=== PATIENT | male | born 1940 | race Caucasian/White ===

== ENCOUNTER → 2023-11-03 | Outpatient (CLI) | payer MEDICARE | END | disposition home or self-care (01) | LOC: RAH 14:50 | PROVIDERS: ATTEND Internal Medicine | DX: I70.0 Atherosclerosis of aorta (principal); M47.815 Spondylosis without myelopathy or radiculopathy, thoracolumbar region; R06.02 Shortness of breath; R05.9 Cough, unspecified; Z95.0 Presence of cardiac pacemaker | CPT/HCPCS: 71046 ==

== ENCOUNTER → 2023-11-06 | Outpatient (CLI) | payer MEDICARE | END | disposition home or self-care (01) | LOC: RAH 09:08 | PROVIDERS: ATTEND Internal Medicine | DX: K40.20 Bilateral inguinal hernia, without obstruction or gangrene, not specified as recurrent (principal); K57.30 Diverticulosis of large intestine without perforation or abscess without bleeding; K44.9 Diaphragmatic hernia without obstruction or gangrene; N28.1 Cyst of kidney, acquired; M47.815 Spondylosis without myelopathy or radiculopathy, thoracolumbar region; R06.02 Shortness of breath | CPT/HCPCS: 74176 ==

== ENCOUNTER → 2024-02-26 | Outpatient (CLI) | payer MEDICARE ==
[~2024-02-26] MED LIST: ALPR1TAB7 PO; AMIO200T68 PO; ATOR40TA71 PO; BUPR-49 PO; EPLE50TA PO; ESOM40CA66 PO; HYDR25TA PO; LEVO137T2 PO; RIVA20TA PO; TAMS-1 PO
[2024-02-26 12:15] LABS: BASOPHILS # (AUTO) 0.04 K/uL (0.00-0.20); BASOPHILS % (AUTO) 0.6 % (0.0-5.0); EOSINOPHILS # (AUTO) 0.08 K/uL (0.00-0.70); EOSINOPHILS % (AUTO) 1.1 % (0.0-8.0); HEMATOCRIT 41.6 % (42-54); IMMATURE GRANULOCYTE ABSOLUTE 0.02 K/uL (0-1); LYMPHOCYTES # (AUTO) 1.3 K/uL (1.0-4.8); LYMPHOCYTES % (AUTO) 18.4 % (21.0-51.0); MEAN CORPUSCULAR HEMOGLOBIN 29.7 pg (27.0-33.0); MEAN CORPUSCULAR HGB CONC 30.8 g/dL (32.0-36.0); MEAN CORPUSCULAR VOLUME 96.5 fL (79-99); MONOCYTES # (AUTO) 0.7 K/uL (0.1-1.0); MONOCYTES % (AUTO) 10.2 % (3.0-13.0); NEUTROPHILS # (AUTO) 4.9 K/uL (1.8-7.7); NEUTROPHILS % (AUTO) 69.4 % (40.0-77.0); PLATELET COUNT (AUTO) 182 K/uL (130-400); RED BLOOD CELL COUNT(AUTO) 4.31 MIL/uL (4.50-6.20); RED CELL DISTRIBUTION WIDTH 13.3 % (11.0-15.5); WHITE BLOOD COUNT (AUTO) 7.1 K/uL (4.8-10.8)
[2024-02-26 12:31] LABS: ALBUMIN 3.6 g/dL (3.5-5.0); BILIRUBIN,TOTAL 0.7 mg/dL (0.2-1.0); CREATININE 1.1 mg/dL (0.5-1.3); POTASSIUM 3.4 mmol/L (3.5-5.1); TOTAL PROTEIN, SERUM 7.1 g/dL (6.0-8.3)
== END | disposition home or self-care (01) ==
LOC: LAB 09:22
PROVIDERS: ATTEND Internal Medicine Cardiovascular Disease
DX: I10 Essential (primary) hypertension (principal); E78.5 Hyperlipidemia, unspecified
CPT/HCPCS: 36415; 80053; 85025

== ENCOUNTER → 2024-04-07 | Outpatient (CLI) | payer MEDICARE ==
--- NOTE | 2024-04-08 12:17 | HMCIMG ---
CHEST 2VWS REASON: PNEUMONIA COMPARISON: 02/16/2024 FINDINGS: Two views of the chest were obtained. Lungs are clear. Heart size is normal. There is no pulmonary vascular congestion. Mediastinum and bony thorax appear unremarkable. 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 IMPRESSION: 1. No acute finding, no change.
== END | disposition home or self-care (01) ==
LOC: OIH 12:59
PROVIDERS: ATTEND Internal Medicine
DX: J18.9 Pneumonia, unspecified organism (principal)
CPT/HCPCS: 71046

== ENCOUNTER 2024-08-29 06:11 | Observation (INO) | payer MEDICARE ==
[2024-08-25 11:26] VITALS: BP 117/66; PULSE 72; RESP 18; TEMP 97.5
--- NOTE | 2024-08-25 11:40 | NUR ---
preop INCENTIVE SPIROMETRY DONE BY KIRAN AGUIRRE
[2024-08-25 11:45] LABS: CREATININE 1.1 mg/dL (0.5-1.3); POTASSIUM 3.6 mmol/L (3.5-5.1)
[2024-08-25 11:51] LABS: INR 1.23 (0.85-1.15); PROTHROMBIN TIME 12.8 SEC (9.6-11.6)
[2024-08-25 11:52] LABS: PARTIAL THROMBOPLASTIN TIME 34.2 SEC (26.3-35.5)
[2024-08-29] VITALS (28 sets, daily range): BP systolic 118–149; BP diastolic 48–83; PULSE 60–65; RESP 14–19; TEMP 96–97.8; O2SAT 94
[~2024-08-29] VITALS: Ht 185.4 cm; Wt 99.8 kg
[~2024-08-29 06:11] MED LIST changes: -AMIO200T68 PO; +AMIO200T73 PO; +TAFA20CA PO; -TAMS-1 PO; +TAMS-55 PO
[2024-08-29] MEDS: ceFAZolin SODIUM 2 GM VIAL ONE (07:22)
[2024-08-29] MEDS: LACTATED RINGERS 1000ML 1,000 ML IV ONE (07:23)
[2024-08-29] MEDS ORDERED: ROPivacaine 0.5% 5MG/ML 30ML ONE (07:39)
[2024-08-29] MEDS ORDERED: LIDOCAINE PF 100MG/5ML (2%) SYRINGE 5ML ONE (07:43)
[2024-08-29] MEDS ORDERED: FENTanyl CITRate PF 50 MCG/1 ML 2ML VIAL ONE (07:44)
[2024-08-29] MEDS ORDERED: proPOFol 10 MG/ML 20ML VIAL IV ONE (07:44)
[2024-08-29] MEDS ORDERED: rocuRONium bROMide 10MG/1ML 5ML VL ONE (07:44)
[2024-08-29] MEDS ORDERED: ketaMINE 50MG/ML SYRINGE 50 MG/ML DISP.SYRIN ONE (08:54)
--- NOTE | 2024-08-29 09:13 | DS ---
Discharge Summary Hospital Course Summary: The patient was admitted to the hospital postoperatively on 08/29/2024 after undergoing right total knee arthroplasty. They did well with routine postoperative pain control. They worked well with physical therapy. They developed some acute blood loss anemia but remained asymptomatic. The hospital course was otherwise uncomplicated. They were subsequently able to be discharged on postoperative day [] once discharge arrangements were made with home health physical therapy. Rn Unit Manager(s): None Procedure(s): Right total knee arthroplasty, 08/29/2024 Assessment/Plan: ASSESSMENT: Status post right total knee arthroplasty Acute blood loss anemia PLAN: See discharge instructions Discharge Instructions: Begin working with home health physical therapy. Dressing may be removed 08/31/2024 and left open to air. Showers ok allowing soap and water to run over the wound. Pat dry. Do not submerge wound in tub/pool. Do not apply ointments. Do not apply Betadine. Do not apply peroxide. Ice packs to decrease pain/swelling. Prescriptions have been sent to the pharmacy: *[place] 5/325mg 1-2 tab every 6 hours as needed for severe pain. (please call for refills) Cyclobenzaprine 5mg 1 tab every 8 hours as needed for muscle spasm pain. Gabapentin 100mg 1 tab every 8 hours (may discontinue if drowsy). Colace 100mg 1 tab orally twice a day as needed for constipation. Resume your home dose of Xarelto to prevent blood clots. Follow-up at [facility] on ThursdaySeptember 20 at 1:45 p.m. Home Medications: Reported Medications Tafamidis Meglumine (Vyndaqel) 20 Mg Capsule, 80 MG PO AM, CAP 08/25/24 Tamsulosin HCl (Flomax) 0.4 Mg Cap.er.24h, 1 CAP PO DAILY for 30 Days, #30 CAP 0 Refills 02/15/24 Amiodarone HCl (Amiodarone HCl) 200 Mg Tablet, 1 TAB PO DAILY 02/14/24 Esomeprazole Magnesium (Esomeprazole Magnesium) 40 Mg Capsule.dr, 1 CAP PO BID 02/14/24 Atorvastatin Calcium (Atorvastatin Calcium) 40 Mg Tablet, 1 TAB PO DAILY 02/14/24 Hydrochlorothiazide (Hydrochlorothiazide) 25 Mg Tablet, 1 TAB PO DAILY 02/14/24 Eplerenone (Eplerenone) 50 Mg Tablet, 1 TAB PO DAILY 02/14/24 Rivaroxaban (Xarelto) 20 Mg Tablet, 1 TAB PO DAILY 02/14/24 Bupropion HCl (Bupropion Xl) 150 Mg Tab.er.24h, 1 TAB PO BID 02/14/24 Levothyroxine Sodium (Levothyroxine Sodium) 137 Mcg Tablet, 1 TAB PO HS 02/14/24 Alprazolam (Alprazolam) 1 Mg Tablet, 1 TAB PO DAILYDINNER PRN for INSOMNIA/SLEEP 02/14/24 EDDIE NUR MD Aug 29, 2024 09:13
[2024-08-29] MEDS ORDERED: phenylEPHRINE HCL 10 MG/ML 1ML VIAL IV ONE (09:20)
[2024-08-29] MEDS ORDERED: dexaMETHasone SOD PHOSPHATE 10MG/ML 1ML VIAL ONE (09:24)
[2024-08-29] MEDS ORDERED: ondanSETRON 4MG INJ ONE (09:24)
[2024-08-29] MEDS: TRANEXAMIC ACID 1000MG/10ML ONE (09:30)
[2024-08-29] MEDS ORDERED: CALCIUM CARB 500MG PO PRN (09:30)
[2024-08-29] MEDS ORDERED: PoTASSium chloRIDE 20MEQ/100ML 100 ML IV PRN (09:30)
[2024-08-29] MEDS ORDERED: PoTASSium chloRIDE 20MEQ ER 20 MEQ ERTAB PO PRN (09:30)
[2024-08-29] MEDS ORDERED: traMADol HCL 50 MG TABLET PO PRN (09:30)
[2024-08-29] MEDS ORDERED: HYDROcodone/APAP 5/325 1 TAB TABLET PO PRN ×2 (09:30)
[2024-08-29] MEDS ORDERED: FERROUS FUMARATE 324 MG TABLET PO PRN (09:30)
[2024-08-29] MEDS ORDERED: CYCLOBENZAPRINE HCL 10 MG TABLET PO PRN (09:30)
[2024-08-29] MEDS ORDERED: ondanSETRON 4MG INJ IVP PRN (09:30)
[2024-08-29] MEDS ORDERED: PoTASSium chl 10% ELIXIR 20MEQ 20 MEQ/15 ML UDCUP PO PRN (09:30)
[2024-08-29] MEDS ORDERED: DiphenhydrAMINE HCL 50 MG/ML VIAL IVP PRN (09:30)
[2024-08-29] MEDS: ROPivacaine 0.5% 5MG/ML 30ML ONE (10:00)
[2024-08-29] MEDS: ketOROlac 30MG VIAL (30MG/ML) ONE (10:00)
[2024-08-29] MEDS ORDERED: NEOSTIGMINE METHYLSULFATE 1MG/ML IV ONE (10:49)
[2024-08-29] MEDS ORDERED: GLYCOPYRROLATE 0.2 MG/ML 5 ML VIAL ONE (10:49)
--- NOTE | 2024-08-29 10:50 | OP ---
Operative Note: DATE OF PROCEDURE: 08/29/24 PREOPERATIVE DIAGNOSIS: Right knee osteoarthritis. POSTOPERATIVE DIAGNOSIS: Right knee osteoarthritis. PROCEDURE PERFORMED: Right knee total knee arthroplasty. SURGEON: Felicitas Mcneil MD PROJECT BUYER: Yaritza Muñiz ANESTHESIA: General with adductor canal block. ANESTHESIA: VIC [place]. ESTIMATED BLOOD LOSS: 50cc. COMPLICATIONS: None. DRAINS: None. SPECIMENS REMOVED: resected bone. Not sent to pathology. IMPLANTS: [employer] II BCS size 8 Oxinium femur, size 7 tibial base plate, 35 x 7.5 mm patella, 10 mm polyethylene STATEMENT OF MEDICAL NECESSITY: The patient is a 83-year-old male who suffers from right knee osteoarthritis failing conservative management. After discussion of the risks, benefits, and alternatives with the patient, they voluntarily agreed to undergo the aforementioned procedure. DESCRIPTION OF PROCEDURE: Patient was properly identified in the preoperative holding area. Surgical site marking was verified and surgery consent reviewed. The patient was then taken to the operating room and placed in supine position on the OR table. After induction of general anesthesia, preoperative antibiotics were given, all bony prominences were well-padded, and a well padded tourniquet was applied but not inflated at this time. The right lower extremity was then prepped and draped in usual sterile fashion. Surgical time out was done verifying correct surgery, side, site, and location to be performed. We then began the procedure by exsanguinating the limb using an Esmarch and inflating the tourniquet to 300 mmHg. At this point, we made an anterior midline incision using a 10 blade, coming down sharply the level of the fascia. Skin flaps were elevated medially and laterally. We then obtained a clean 10 blade and performed a standard medial parapatellar arthrotomy. We excised the infrapatellar fat pad. We performed our soft tissue releases off of the tibia. We transected the ACL and removed the anterior portion of the medial & lateral meniscus. We then brought the knee into hyperflexion with the patella everted. We used our entry reamer to enter the femoral canal. We then placed our intramedullary cutting guide for our distal femoral cutting block. We then performed our distal femoral osteotomy ensuring appropriate rotation and removed the bony wafer. We then removed these pins and block and then used jig 2 to size the distal femur with the after mentioned size found. We then placed our 5-in-1 cutting block in 3 degrees of external rotation and took our 5 cuts ensuring to protect the patellar tendon and the collateral ligaments. We then removed the cutting block and our bony fragments using a curved osteotome. We then placed our PCL retractor subluxating the tibia anteriorly. Using an extra medullary tibial cutting guide, we hung the block for our proximal tibial cut taking 2 mm off the more diseased portion. Prior to pinning this block in place, we ensured appropriate varus/valgus alignment and posterior slope similar to the buckland slope of the patient's knee. We then performed our proximal tibial osteotomy and removed the bony wafer using Bovie electrocautery to release any remaining soft tissue attachments. We then used our tibial sizing paddle and checked once more for varus & valgus alignment and found this to be appropriate. At this point, we pinned our tibial paddle in place. We then removed the PCL retractor and subluxated the tibia posteriorly while we placed our femoral trial component. We then finished preparing the notch with the reamer and box chisel. The notch portion of the trial femoral component was then placed. A posterior stabilized polyethylene, size 9 trial was placed. The knee was then taken through range of motion and found to have stable full range of motion. We then placed a bump under the ankle and everted the patella to perform our freehand cut of the undersurface the patella. We then sized our patella and reamed to the lug holes for this. We placed our trial patellar component and begin to take the knee through range of motion. The patella had extreme lateral tracking, and we performed a lateral release. However the patella continued to have significant lateral tracking. We adjusted our tibial component rotation and placed a towel clip to approximate the soft tissues and had slightly better patellar tracking. We therefore elected to go with the 7.5 mm thickness patellar component. At this point we began removing our trial components and punched the tibial keel prior to removing our tibial trial component. Final components were opened and cement was mixed on the back table while we injected local cocktail in the posterior capsule. We then thoroughly irrigated out the bone and dried the bony surfaces. We cemented our tibial component in place ensuring to remove excess cement and placed our trial polyethylene. We then cemented our femoral component in place once again taking time to ensure excess cement was removed leg was brought into full extension to help squeeze the excess cement from around the femoral component. We then brought the knee back in a flexion to remove this portion of the cement at this point we placed the ankle in a bump thoroughly irrigated off the patellar component and cemented our patellar component in standard fashion again removing excess cement. While we waited for the cement to cure, we thoroughly irrigated out the wound with normal saline. Once our cement had cured, we took the knee through a range of motion and found full and stable range of motion. We then elected to use the size 10 polyethylene and removed our trial polyethylene. We impacted our final polyethylene component in place in standard fashion and took the knee through a range of motion check once more. This was satisfactory so we began to repair the arthrotomy using #1 Vicryl in interrupted [id number] fashion. Subcutaneous tissue was repaired using 2-0 Vicryl. Running subcuticular 3-0 Monocryl stitch with Dermabond placed over this for the skin. We then applied a foam barrier dressing and a pressure dressing consisting of 4 x 4's fluffs and an Anthony wrap. The tourniquet was then deflated. Patient was awakened from anesthesia, and they were taken to the recovery room in stable condition. FELICITAS MCNEIL MD Aug 29, 2024 10:50
[2024-08-29] MEDS: ketOROlac 15MG/ML VIAL (15MG/ML) IV SCH (11:38)
[2024-08-29] MEDS: FENTanyl CITRate PF 50 MCG/1 ML 2ML VIAL ONE (11:51)
--- NOTE | 2024-08-29 12:45 | NUR ---
PATIENT ARRIVED ON UNIT VIA STRETCHER. NO SIGNS OR SYMPTOMS OF DISTRESS NOTED. PT DENIES PAIN. WILL REVIEW AND FOLLOW ORDERS.
[2024-08-29] MEDS: acetaMINOPHEN 100 ML ONE (13:24)
[2024-08-29] MEDS: SUGAMMADEX SODIUM 200 MG/2 ML VIAL IV ONE (13:24)
[2024-08-29] MEDS: ketOROlac 15MG/ML VIAL (15MG/ML) ONE (13:24)
[2024-08-29] MEDS: GABAPENTIN 300 MG CAPSULE ONE (13:24)
[2024-08-29] MEDS: FAMOTIDINE 20MG VIAL IV ONE (13:24)
--- NOTE | 2024-08-29 13:33 | HMCIMG ---
KNEE/PATELLA 1-2VWS RT HISTORY: Right total knee arthroplasty COMPARISON: None TECHNIQUE: 2 images of the right knee were obtained. FINDINGS: Total knee arthroplasty changes are seen. There are soft tissue swelling and soft tissue emphysema. There is no acute displaced fracture or dislocation. Degenerative changes are seen. IMPRESSION: 1. Findings as described above.
[2024-08-29] MEDS: GABApentin 100 MG CAPSULE PO SCH (14:01)
[2024-08-29] MEDS: 0.9%NACL 1000ML 1,000 ML IV SCH (14:02)
--- NOTE | 2024-08-29 14:59 | NUR ---
PT provided education on purpose of SCDs, pain management, use of call light, plan of care, and DC planning. PT placed ice and SCDS, brought tall chair and chair alarm for am. Pt left with SCDS on and fall alarm on , call damon in place, ice in place. All questions answered. Pt BP low, pt symptomatic and reports " seeing double. Back to bed. Nurse aware. Will ambulate in am.
[2024-08-29] MEDS: hydroCHLOROthiazide 25 MG TABLET PO SCH (15:06)
--- NOTE | 2024-08-29 15:30 | NUR ---
ORTHO COORDINATOR: TEACHING REGARDING DVT AND PNEUMONIA PREVENTION, PAIN EXPECTATIONS AND PAIN MANAGEMENT. PATIENT IN BED. B SCD SLEEVES IN PLACE AND FUNCTIONING. INCENTIVE SPIROMETER ON BEDSIDE TRAY. PATIENT RETURN DEMONSTRATED PROPER USE OF INCENTIVE SPIROMETER AND FOOT FLEXION/EXTENSION EXERCISES. PATIENT VERBALIZED FREQUENCY OF PERFORMING BREATHING EXERCISES. PAIN EXPECTATIONS REALISTIC. PATIENT REPORTS LEFT KNEE REPLACEMENT IN 2018. REVIEWED NUMERIC PAIN SCALE. ENCOURAGED PATIENT TO PERFORM SELF PAIN ASSESSMENT EVERY FOUR HOURS. INSTRUCTED TO ASSIGN A NUMERIC PAIN VALUE AND TYPE, REPORT TO PRIMARY NURSE SO APPROPRIATE PAIN MEDICATION CAN BE ADMINISTERED. PATENT VERBALIZED UNDERSTANDING. EXPECTATIONS TO SHOWER TOMORROW COMMUNICATED. PATIENT INTENDS TO DISCHARGE HOME WITH HOME HEALTH PHYSICAL THERAPY. PATIENT WILL NEED WALKER AND 3-1 COMMODE. REVIEWED PROCESS FOR HOME HEALTH VISITS. PATIENT VERBALIZED UNDERSTANDING TO ALL TEACHING. NO ADDITIONAL QUESTIONS/CONCERNS AT THIS TIME.
[2024-08-29] MEDS: ceFAZolin SODIUM 2 GM VIAL IVP SCH (17:44)
[2024-08-29] MEDS: buPROPion HCL 150 MG TABLET.SA PO SCH (19:44)
[2024-08-29] MEDS: doCUSate SODIUM 100 MG CAP PO SCH (19:44)
[2024-08-29] MEDS ORDERED: LEVOTHYROXINE SODIUM PO SCH (21:00)
[2024-08-30 00:02] VITALS: BP 144/66; PULSE 51; RESP 18; TEMP 97.6
[2024-08-30 03:50] LABS: MEAN CORPUSCULAR HEMOGLOBIN 32.7 pg (27.0-33.0); MEAN CORPUSCULAR HGB CONC 33.7 g/dL (32.0-36.0); MEAN CORPUSCULAR VOLUME 96.9 fL (79-99); RED BLOOD CELL COUNT(AUTO) 3.92 MIL/uL (4.50-6.20); WHITE BLOOD COUNT (AUTO) 12.7 K/uL (4.8-10.8)
[2024-08-30 04:05] LABS: CREATININE 1.1 mg/dL (0.5-1.3)
[2024-08-30 04:15] VITALS: BP 120/65; PULSE 54; RESP 18; TEMP 97.9
[2024-08-30] MEDS: levoTHYROxine 25 MCG TABLET PO SCH (05:49)
[2024-08-30] MEDS: levoTHYROxine 112 MCG TABLET PO SCH (05:49)
--- NOTE | 2024-08-30 07:59 | PN ---
Ortho postop day one. This morning the patient is awake alert and oriented he is out of bed seated in a chair reporting adequate pain control. He is alternating extension and flexion using a footstool while seated. The Anthony bandage has been removed. The dressing to the anterior joint is intact. Ice is present to operative site. Vital signs have been stable. Afebrile. Laboratory results reviewed. Noted to have a drop in hemoglobin hematocrit as expected after TKA. Patient is asymptomatic and we will address per protocol as necessary. Voiding on his own and already passing gas. Operative findings discussed with the patient. Reinforced incentive spirometry. Did not tolerate physical therapy yesterday reporting dizziness this morning he states he is feeling better. Therapy pending this morning. Anticipated discharge goal is home health/PT. Assessment: Status post right TKA. Asymptomatic acute postoperative blood loss anemia. Plan: Continue Dr. Mcneil's TKA protocol and discharge planning. Asymptomatic acute postoperative blood loss anemia addressed with protocol Vitals/Labs Vital Signs Date Time Temp Pulse Resp B/P (MAP) Pulse Ox O2 Delivery O2 Flow Rate FiO2 08/30/24 04:15 97.9 54 18 120/65 96 Room Air 21 08/29/24 20:00 0 Laboratory Tests 08/30/24 03:23 Medications Current Medications Cefazolin Sodium 2 gm STK-MED ONCE .ROUTE Last administered on 08/29/24at 09:32; Start 08/29/24 at 06:17; Stop 08/29/24 at 06:17; Status DC Lactated Ringer's 1,000 ml @ As Directed STK-MED ONCE IV Last administered on 08/29/24at 07:23; Start 08/29/24 at 06:17; Stop 08/29/24 at 06:18; Status DC Gabapentin 300 mg STK-MED ONCE .ROUTE; Start 08/29/24 at 07:01; Stop 08/29/24 at 07:01; Status DC Acetaminophen 100 ml @ As Directed STK-MED ONCE .ROUTE; Start 08/29/24 at 07:01; Stop 08/29/24 at 07:01; Status DC Famotidine 20 mg STK-MED ONCE IV; Start 08/29/24 at 07:01; Stop 08/29/24 at 07:01; Status DC Ropivacaine 150 mg STK-MED ONCE .ROUTE; Start 08/29/24 at 07:39; Stop 08/29/24 at 07:39; Status DC Lidocaine HCl 100 mg STK-MED ONCE .ROUTE; Start 08/29/24 at 07:43; Stop 08/29/24 at 07:44; Status DC Propofol 200 mg STK-MED ONCE IV; Start 08/29/24 at 07:44; Stop 08/29/24 at 07:44; Status DC Rocuronium [place] 50 mg STK-MED ONCE .ROUTE; Start 08/29/24 at 07:44; Stop 08/29/24 at 07:44; Status DC Fentanyl Citrate 100 mcg STK-MED ONCE .ROUTE; Start 08/29/24 at 07:44; Stop 08/29/24 at 07:45; Status DC Ketorolac Tromethamine 30 mg STK-MED ONCE .ROUTE Last administered on 08/29/24at 10:00; Start 08/29/24 at 08:30; Stop 08/29/24 at 08:30; Status DC Ropivacaine 150 mg STK-MED ONCE .ROUTE Last administered on 08/29/24at 10:00; Start 08/29/24 at 08:30; Stop 08/29/24 at 08:30; Status DC Ketamine HCl 50 mg STK-MED ONCE .ROUTE; Start 08/29/24 at 08:54; Stop 08/29/24 at 08:54; Status DC Sodium Chloride 1,000 ml @ 100 mls/hr Q10H IV Last administered on 08/30/24at 03:55; Start 08/29/24 at 09:30; Stop 08/30/24 at 09:29 Polyethylene Glycol 17 gm DAILY PO; Start 08/30/24 at 09:00; Stop 09/29/24 at 08:59 Bisacodyl 10 mg DAILY PRN RC; Start 09/01/24 at 09:30; Stop 10/01/24 at 09:29 Ketorolac Tromethamine 15 mg Q6H PRN IV; Start 08/30/24 at 09:30; Stop 09/04/24 at 09:29 Ferrous Fumarate 324 mg DAILY PRN PO; Start 08/29/24 at 09:30; Stop 09/28/24 at 09:29 Ondansetron HCl 4 mg Q6H PRN IVP; Start 08/29/24 at 09:30; Stop 09/28/24 at 09:29 Calcium Carbonate 500 mg Q12H PRN PO; Start 08/29/24 at 09:30; Stop 09/28/24 at 09:29 Diphenhydramine HCl 25 mg Q6H PRN IVP; Start 08/29/24 at 09:30; Stop 08/29/24 at 09:14; Status DC Cefazolin Sodium 2 gm Q8H IVP Last administered on 08/30/24at 00:57; Start 08/29/24 at 18:00; Stop 08/30/24 at 02:01; Status DC Cyclobenzaprine HCl 5 mg Q8H PRN PO; Start 08/29/24 at 09:30; Stop 09/28/24 at 09:29 Gabapentin 100 mg TID PO Last administered on 08/29/24at 19:44; Start 08/29/24 at 14:00; Stop 09/28/24 at 13:59 Aspirin 325 mg DAILY PO; Start 08/30/24 at 09:00; Stop 09/29/24 at 08:59 Ketorolac Tromethamine 15 mg Q8H IV Last administered on 08/30/24at 00:57; Start 08/29/24 at 09:30; Stop 08/30/24 at 01:31; Status DC Docusate Sodium 100 mg BID PO Last administered on 08/29/24at 19:44; Start 08/29/24 at 21:00; Stop 09/28/24 at 20:59 Potassium Chloride 100 ml @ 100 mls/hr AD PRN IV; Start 08/29/24 at 09:30; Stop 09/28/24 at 09:29 Potassium Chloride 20 meq AD PRN PO; Start 08/29/24 at 09:30; Stop 09/28/24 at 09:29 Potassium Chloride 20 meq AD PRN PO; Start 08/29/24 at 09:30; Stop 09/28/24 at 09:29 Tramadol HCl 50 mg Q6H PRN PO; Start 08/29/24 at 09:30; Stop 09/03/24 at 09:29 Acetaminophen/ Hydrocodone Bitart Q4H PRN PO; Start 08/29/24 at 09:30; Stop 08/29/24 at 09:23; Status DC Amiodarone HCl 200 mg DAILY PO; Start 08/30/24 at 09:00; Stop 09/29/24 at 08:59 Atorvastatin Calcium 40 mg DAILY PO; Start 08/30/24 at 09:00; Stop 09/29/24 at 08:59 Hydrochlorothiazide 25 mg DAILY PO; Start 08/30/24 at 09:00; Stop 08/29/24 at 14:14; Status DC Tamsulosin HCl 0.4 mg DAILY PO; Start 08/30/24 at 09:00; Stop 09/29/24 at 08:59 Bupropion HCl 150 mg BID PO Last administered on 08/29/24at 19:44; Start 08/29/24 at 21:00; Stop 09/28/24 at 20:59 Home Med (Eplerenone 1 TAB) DAILY PO; Start 08/30/24 at 09:00; Stop 09/29/24 at 08:59 Pantoprazole Sodium 40 mg DAILY PO; Start 08/30/24 at 09:00; Stop 09/29/24 at 08:59 Miscellaneous Medication 1 tab HS PO; Start 08/29/24 at 21:00; Stop 08/29/24 at 09:24; Status DC Home Med (Tafamidis Meglumine (Vyndaq... AM PO; Start 08/30/24 at 09:00; Stop 09/29/24 at 08:59 Phenylephrine HCl 10 mg STK-MED ONCE IV; Start 08/29/24 at 09:20; Stop 08/29/24 at 09:20; Status DC Tranexamic Acid 1,000 mg STK-MED ONCE .ROUTE Last administered on 08/29/24at 09:30; Start 08/29/24 at 09:23; Stop 08/29/24 at 09:24; Status DC Ondansetron HCl 4 mg STK-MED ONCE .ROUTE; Start 08/29/24 at 09:24; Stop 08/29/24 at 09:24; Status DC Dexamethasone Sodium Phosphate 10 mg STK-MED ONCE .ROUTE; Start 08/29/24 at 09:24; Stop 08/29/24 at 09:24; Status DC Levothyroxine Sodium 112 mcg SYN PO Last administered on 08/30/24at 05:49; Start 08/30/24 at 06:30; Stop 09/29/24 at 06:29 Levothyroxine Sodium 25 mcg SYN PO Last administered on 08/30/24at 05:49; Start 08/30/24 at 06:30; Stop 09/29/24 at 06:29 Acetaminophen/ Hydrocodone Bitart 1 tab Q4H PRN PO; Start 08/29/24 at 09:30; Stop 09/03/24 at 09:29 Acetaminophen/ Hydrocodone Bitart 2 tab Q4H PRN PO; Start 08/29/24 at 09:30; Stop 09/03/24 at 09:29 Glycopyrrolate 1 mg STK-MED ONCE .ROUTE; Start 08/29/24 at 10:49; Stop 08/29/24 at 10:55; Status DC Neostigmine Methylsulfate 10 mg STK-MED ONCE IV; Start 08/29/24 at 10:49; Stop 08/29/24 at 10:55; Status DC Ketorolac Tromethamine 15 mg STK-MED ONCE .ROUTE; Start 08/29/24 at 11:37; Stop 08/29/24 at 11:37; Status DC Fentanyl Citrate 100 mcg STK-MED ONCE .ROUTE Last administered on 08/29/24at 11:51; Start 08/29/24 at 11:48; Stop 08/29/24 at 11:49; Status DC Hydrochlorothiazide 25 mg DAILY@1400 PO Last administered on 08/29/24at 15:06; Start 08/29/24 at 14:30; Stop 09/28/24 at 14:29 MARICARMEN DAVE NP Aug 30, 2024 07:59
[2024-08-30 08:00] VITALS: O2SAT 92
[2024-08-30 08:30] VITALS: BP 126/67; PULSE 66; RESP 19; TEMP 98
[2024-08-30] MEDS: polyETHYLene GLYCol 3350 17 GM POWD.PACK PO SCH (08:40)
[2024-08-30] MEDS: ASPIRIN 325MG EC TAB PO SCH (08:40)
[2024-08-30] MEDS: PANTOPrazole 40 MG TAB DR PO SCH (08:42)
[2024-08-30] MEDS: atorVAStatin 40 MG TABLET PO SCH (08:42)
[2024-08-30] MEDS: AMIOdarone 200 MG TABLET PO SCH (08:42)
[2024-08-30] MEDS: tamSULOsin HCL 0.4 MG CAP.ER.24H PO SCH (08:42)
--- NOTE | 2024-08-30 08:45 | NUR ---
MEDICATIONS HELD PATIENTS MORNING MEDS BECAUSE HE TOOK FROM HIS OWN HOME MED SUPPLY. EDUCATED THAT WE WILL PROVIDE ALL MEDICATIONS ORDERED AND TO NOT TAKE FROM HOME SUPPLY TO PREVENT DOUBLE DOSING. COMPARED HOME MEDS WITH MED LIST ORDERED AND PROVIDED MEDICATIONS NOT TAKEN BY PATIENT. PATIENT VOICED UNDERSTANDING WILL CONTINUE TO MONITOR.
[2024-08-30] MEDS ORDERED: hydroCHLOROthiazide 25 MG TABLET PO SCH (09:00)
--- NOTE | 2024-08-30 09:09 | NUR ---
EDUCATION PATIENT WAS EDUCATED BY NEVIN WITH PT TO NOT GET UP BY HIMSELF TO PREVENT ANY FALL OR COMPLICATION WITH SURGERY. AT BEDSIDE AND WITNESSED TO EDUCATION. PATIENT STATED "WELL I HAVE TO POOP!". EDUCATED PATIENT TO WAIT FOR ASSISTANCE WHEN NEEDING TO AMBULATE SO STAFF CAN GUIDE WITH AMBULATION AND PREVENT ANY FALLS. REINFORCED EDUCATION ON COMPLICATIONS IF FALL OCCURS. BOTH PATIENT AND VOICED UNDERSTANDING. WILL CONTINUE TO MONITOR.
[2024-08-30] MEDS ORDERED: ketOROlac 15MG/ML VIAL (15MG/ML) IV PRN (09:30)
[2024-08-30 11:00] VITALS: BP 134/60; PULSE 65; RESP 19; TEMP 98
--- NOTE | 2024-08-30 11:10 | NUR ---
[facility] CM MET WITH PT THIS MORNING, INITIAL ASSESSMENT DONE. PATIENT IS INDEPENDENT PRIOR TO ADMISSION, LIVES AT HOME WITH HIS . PATIENT DENIES ANY EQUIPMENT/SERVICES. FEELS SAFE TO GO BACK HOME, STILL DRIVE, [facility] TO [facility] TO ASSIST WITH TRANSPORTATION AND NEEDS NECESSARY. DISCUSSED MD RECOMMENDATIONS FOR HOME W/HH FOR PT AND DME PT WILL NEED STANDARD WALKER, PT AGREEABLE, CONSENT SIGNED [place] FOR [facility] HH AND [facility]. [facility] HOME W/HH & DME ONCE APPROVED. CM TO CONTINUE TO FOLLOW UP. Addendum: 08/30/24 at 1533 by HUGO BOATENG LVN CM Amended: Links added.
[2024-08-30] MEDS: HYDROcodone/APAP 5/325 1 TAB TABLET PO PRN (12:11)
[2024-08-30] MEDS ORDERED: CYCL-309 PO (14:39)
[2024-08-30] MEDS ORDERED: HYDR-4060 PO (14:39)
[2024-08-30] MEDS ORDERED: GABA100C PO (14:39)
[2024-08-30] MEDS ORDERED: DOCU-116 PO (14:39)
--- NOTE | 2024-08-30 15:44 | NUR ---
DISCHARGE DISCHARGE ORDER FOR PATIENT TO BE DISCHARGED HOME WITH [facility] OBTAINED. APPROVAL FROM [facility] CONFIRMED BY CM. DISCHARGE ORDERS AND DOCUMENTATION GIVEN TO PATIENT AT BEDSIDE. VOICED UNDERSTANDING. IV DISCONTINUED, CATHETER INTACT, NO S/S OF INFECTION NOTED. BANDS REMOVED. PATIENT PENDING TRANSPORTATION FROM .
--- NOTE | 2024-08-30 16:18 | NUR ---
GAVE REPORT TO [facility] JENI DAVIS FOR PT. VOICED UNDERSTANDING.
--- NOTE | 2024-08-30 16:40 | NUR ---
DISCHARGE PATIENT LEFT VIA WHEELCHAIR ACCOMPANIED BY , NO S/S OF DISTRESS NOTED
--- NOTE | 2024-08-30 22:28 | PN ---
PROGRESS NOTE PROGRESS NOTE DATE OF PROGRESS NOTE: 08/30/24 SUBJECTIVE: Patient has post-operative pain VITAL SIGNS Vital Signs Date Time Temp Pulse Resp B/P (MAP) Pulse Ox O2 Delivery O2 Flow Rate FiO2 08/30/24 11:00 98.1 65 19 134/60 96 Room Air 08/30/24 08:00 0 21 PHYSICAL EXAM: heent Normal Heart normal Lungs normal exam Abdomen normal exam LABORATORY: Laboratory Result(s) Test 08/30/24 03:23 White Blood Count 12.7 K/uL (4.8-10.8) Red Blood Count 3.92 MIL/uL (4.50-6.20) Hemoglobin 12.8 g/dL (14.0-18.0) Hematocrit 38.0 % (42-54) Mean Corpuscular Volume 96.9 fL (79-99) Mean Corpuscular Hemoglobin 32.7 pg (27.0-33.0) Mean Corpuscular Hemoglobin Concent 33.7 g/dL (32.0-36.0) Red Cell Distribution Width 13.0 % (11.0-15.5) Platelet Count 120 K/uL (130-400) Mean Platelet Volume 10.0 fL (7.5-10.5) Nucleated Red Blood Cells 0.0 % (0.0-0.19) Sodium Level 137 mmol/L (136-145) Potassium Level 4.0 mmol/L (3.5-5.1) Chloride Level 105 mmol/L (101-111) Carbon Dioxide Level 28 mmol/L (21-32) Blood Urea Nitrogen 18 mg/dL (7-18) Creatinine 1.1 mg/dL (0.5-1.3) Glomerular Filtration Rate Calc 67 mL/min (>90) Random Glucose 109 mg/dL (70-105) Total Calcium 9.2 mg/dL (8.5-10.1) PLAN: Stable Cardiomyopathy LENCHO OVERTON MD Aug 30, 2024 22:28
[2024-09-01] MEDS ORDERED: BisaCODYL 10 MG SUPP.RECT RC PRN (09:30)
== END 2024-08-30 17:00 | disposition home or self-care (01) ==
LOC: DAH 06:11 → DAHIP 06:12 → DAH 06:12 → 4AH 12:45
PROVIDERS: ADMIT Student in an Organized Health Care Education/Training Program; ATTEND Student in an Organized Health Care Education/Training Program
DX: M17.11 Unilateral primary osteoarthritis, right knee (principal); M25.561 Pain in right knee; I10 Essential (primary) hypertension; I25.10 Atherosclerotic heart disease of native coronary artery without angina pectoris; K21.9 Gastro-esophageal reflux disease without esophagitis; I48.91 Unspecified atrial fibrillation; K59.09 Other constipation; D62 Acute posthemorrhagic anemia; Z79.899 Other long term (current) drug therapy; Z98.890 Other specified postprocedural states
CPT/HCPCS: 27447; 96365; 97161; 97530 ×4; 96366; 96375; 97116 ×2; G0378 ×32; A4223 ×2; A4663; J7120 ×2; J3490 ×5; J3010 ×2; J1100; J2003; J2704; J2405; J1885 ×3; J2710; J2795 ×2; J2371; J0690 ×3; C1713 ×2; C1776 ×2; A4649 ×2; A4930; A6255; A4215; A4213; A4222; A4221; A4216; A4600; 36415; 73560; 80048; 84134; 85027; 85610; 85730; 86140; 87641

== ENCOUNTER → 2024-10-12 | Outpatient (CLI) | payer MEDICARE ==
[~2024-10-12] MED LIST changes: +CYCL-309 PO; +DOCU-116 PO; +GABA100C PO; +HYDR-4060 PO
--- NOTE | 2024-10-17 13:50 | HMCIMG ---
DIGITAL bilateral breast DIAGNOSTIC MAMMOGRAM Technique: The digital mammographic examination of both breasts in craniocaudal, mediolateral oblique views along with CAD was obtained. History: This is a 84 years year-old male with gynecomastia. Patient has no family history of breast cancer. Patient has no complaint Reference:Baseline mammogram. Breast composition: Breast composition B: There are scattered areas of fibroglandular density. Finding: The digital mammographic examination of both breasts in craniocaudal and mediolateral oblique view along with CAD demonstrates the right breast there is mostly involutional fatty changes in the left breast there is subareolar breast tissues. From this study a lesion cannot be excluded. I would recommend ultrasound for further evaluation. There is no evidence of any dendritic mass, cluster microcalcification or architectural distortion. The retromammary fat appears to be normal. There is a pacemaker also seen in the left axillary region. IMPRESSION: Left breast has minimal gynecomastia as compared to the right breast I would recommend bilateral breast sonogram for further evaluation.. FINAL ASSESSMENT: ACR: BI-RAD -0. Incomplete: need additional imaging evaluation. Management: Recall for additional imaging and/or comparison with prior examination(s). Likelihood of Cancer: N/A NOTE: IF A WORK-UP OF THIS PATIENT LEADS TO A BIOPSY, PLEASE FORWARD A COPY OF THE PATHOLOGY REPORT TO OUR OFFICE REQUIRED BY [employer] E[employer] DECEMBER 07, 1993. A NEGATIVE MAMMOGRAM SHOULD NOT PRECLUDE BIOPSY OF A CLINICALLY PALPABLE SUSPICIOUS MASS, 10% OF BREAST CANCERS ARE MAMMOGRAPHICALLY OCCULT. THIS MAMMOGRAPHY FACILITY IS FULLY ACCREDITED BY THE FOOD AND DRUG ADMINISTRATION (FDA). THANK YOU FOR THIS REFERRAL.
== END ==
LOC: RAH 14:29
PROVIDERS: ATTEND Internal Medicine
DX: N62 Hypertrophy of breast (principal)
CPT/HCPCS: 77066

== ENCOUNTER 2024-12-19 07:15 | Day surgery (SDC) | payer MEDICARE ==
[2024-12-15 10:14] LABS: IMMATURE GRANULOCYTE ABSOLUTE 0.02 K/uL (0-1); NUCLEATED RED BLOOD CELLS 0.0 % (0.0-0.19); PLATELET COUNT (AUTO) 152 K/uL (130-400); RED BLOOD CELL COUNT(AUTO) 4.70 MIL/uL (4.50-6.20); RED CELL DISTRIBUTION WIDTH 13.4 % (11.0-15.5); WHITE BLOOD COUNT (AUTO) 5.7 K/uL (4.8-10.8)
[2024-12-15 10:22] LABS: INR 1.29 (0.85-1.15)
[2024-12-15 10:28] LABS: CREATININE 1.2 mg/dL (0.5-1.3); GLOMERULAR FILTR. RATE CALC 60.0 mL/min (>90); GLUCOSE,RANDOM 95.0 mg/dL (70-105); SODIUM SERUM 144.0 mmol/L (136-145); UREA NITROGEN, BLOOD 20.0 mg/dL (7-18)
[2024-12-15 10:36] VITALS: BP 117/64; PULSE 80; RESP 18; TEMP 97.5
--- NOTE | 2024-12-15 11:06 | EKG ---
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
[~2024-12-19] VITALS: Ht 185.4 cm; Wt 96.5 kg
[2024-12-19] VITALS (9 sets, daily range): BP systolic 99–121; BP diastolic 50–84; PULSE 60–77; RESP 10–18; TEMP 97–97.3
[~2024-12-19 07:15] MED LIST changes: -CYCL-309 PO; -DOCU-116 PO; -GABA100C PO; -HYDR-4060 PO; +HYDR12.54 PO; -HYDR25TA PO
[2024-12-19] MEDS: 0.9%NACL 1000ML 1,000 ML IV SCH (08:15)
[2024-12-19] MEDS ORDERED: LIDOCAINE HCL 1% MDV 50ML VIAL ONE (08:51)
[2024-12-19] MEDS ORDERED: MIDAZOLAM HCL 1 MG/ML 2ML VIAL ONE ×4 (09:25→10:08)
--- NOTE | 2024-12-19 11:05 | NUR ---
DRESSING: PRESSURE DRESSING TO LEFT UPPER CHEST DRY/INTACT.
--- NOTE | 2024-12-19 11:25 | NUR ---
DRESSING: PRESSURE DRESSING TO LEFT UPPER CHEST REMAINS DRY/INTACT.
--- NOTE | 2024-12-19 11:40 | NUR ---
dressing: pressure dressing to left upper chest dry/intact
--- NOTE | 2024-12-19 11:50 | NUR ---
dressing: pressure dressing to left upper chest dry/intact
--- NOTE | 2024-12-19 12:05 | NUR ---
dressing: pressure dressing to left upper chest remains dry/intact.
--- NOTE | 2024-12-19 12:35 | NUR ---
dressing: pressure dressing to left upper chest dry/intact.
--- NOTE | 2024-12-19 13:05 | NUR ---
dressing: pressure dressing to left upper chest remains dry/intact
--- NOTE | 2024-12-19 13:58 | NUR ---
report: handoff communication given to megan terrell rn
--- NOTE | 2024-12-19 14:50 | NUR ---
VERBAL AND WRITTEN DISCHARGE INSTRUCTIONS GIVEN TO PT AND SPOUSE IV REMOVED SITE ASYMPTOMATIC. PRESSURE DRESSING LEFT CHEST REMOVED SITE ASYMPTOMATIC. PT TAKEN OUT VIA WHEELCHAIR SPOUSE DRIVING
== END 2024-12-19 15:02 | disposition home or self-care (01) ==
LOC: DAH 07:15
PROVIDERS: ATTEND Internal Medicine Cardiovascular Disease
DX: T82.897A Other specified complication of cardiac prosthetic devices, implants and grafts, initial encounter (principal); I44.7 Left bundle-branch block, unspecified; I10 Essential (primary) hypertension; E03.9 Hypothyroidism, unspecified; K21.9 Gastro-esophageal reflux disease without esophagitis; I48.91 Unspecified atrial fibrillation; E78.2 Mixed hyperlipidemia; D68.69 Other thrombophilia; A42.1 Abdominal actinomycosis; Z79.01 Long term (current) use of anticoagulants; Z96.652 Presence of left artificial knee joint; Y71.2 Prosthetic and other implants, materials and accessory cardiovascular devices associated with adverse incidents; Y83.8 Other surgical procedures as the cause of abnormal reaction of the patient, or of later complication, without mention of misadventure at the time of the procedure; R00.1 Bradycardia, unspecified; Z88.1 Allergy status to other antibiotic agents; Z79.899 Other long term (current) drug therapy
CPT/HCPCS: 17999; 36415; 80048; 85025; 85610; 85730; 93005; 99156; 99157; A4606; C1769; J0690; J2250; J3010; J3490; J7030; A4215; A4216; A4221; A4222; A4223; A4663; J0665